=== PATIENT | female | born 1975 | race Caucasian/White ===

== ENCOUNTER 2019-12-08 13:43 | Outpatient (RCR) | payer OTHER | END 2019-12-13 | LOC: WCC 13:43 | PROVIDERS: ATTEND Internal Medicine Infectious Disease | DX: T81.89XA Other complications of procedures, not elsewhere classified, initial encounter (principal); Y83.8 Other surgical procedures as the cause of abnormal reaction of the patient, or of later complication, without mention of misadventure at the time of the procedure; L89.153 Pressure ulcer of sacral region, stage 3; L89.152 Pressure ulcer of sacral region, stage 2; E11.65 Type 2 diabetes mellitus with hyperglycemia; E66.3 Overweight; F33.9 Major depressive disorder, recurrent, unspecified; Z74.01 Bed confinement status ==

== ENCOUNTER 2020-01-12 11:09 | Outpatient (RCR) | payer OTHER ==
[~2020-01-12 11:09] MED LIST: LIDOCAINE VISC 2% SOLN 15 ML UDC ONE; LIDOCAINE/PRILOCAINE 2.5-2.5% KIT ONE
[2020-01-12] MEDS ORDERED: LIDOCAINE/PRILOCAINE 2.5-2.5% KIT ONE ×2 (16:26→17:07)
== END 2020-01-13 ==
LOC: WCC 11:09
PROVIDERS: ATTEND Internal Medicine Infectious Disease
DX: T81.89XA Other complications of procedures, not elsewhere classified, initial encounter (principal); Y83.8 Other surgical procedures as the cause of abnormal reaction of the patient, or of later complication, without mention of misadventure at the time of the procedure; L89.153 Pressure ulcer of sacral region, stage 3; L89.152 Pressure ulcer of sacral region, stage 2; E11.65 Type 2 diabetes mellitus with hyperglycemia; F33.9 Major depressive disorder, recurrent, unspecified; E66.3 Overweight; Z74.01 Bed confinement status

== ENCOUNTER 2020-02-19 14:50 | Outpatient (RCR) | payer OTHER | END 2020-03-14 | LOC: WCC 14:50 | PROVIDERS: ATTEND Internal Medicine Infectious Disease | DX: T81.89XA Other complications of procedures, not elsewhere classified, initial encounter (principal); Y83.8 Other surgical procedures as the cause of abnormal reaction of the patient, or of later complication, without mention of misadventure at the time of the procedure; L89.153 Pressure ulcer of sacral region, stage 3; L89.152 Pressure ulcer of sacral region, stage 2; E11.65 Type 2 diabetes mellitus with hyperglycemia; E66.3 Overweight; F33.9 Major depressive disorder, recurrent, unspecified; Z74.01 Bed confinement status ==